=== PATIENT | female | born 1965 | race Caucasian/White ===

== ENCOUNTER 2023-09-09 15:04 | Outpatient (CLI) | payer BC | END 2023-09-09 15:05 | disposition home or self-care (01) | LOC: BICMAMMO 15:04 | PROVIDERS: ATTEND Nurse Practitioner Family | DX: N63.25 Unspecified lump in the left breast, overlapping quadrants (principal); N63.21 Unspecified lump in the left breast, upper outer quadrant | CPT/HCPCS: 77066; G0279 ==

== ENCOUNTER 2024-11-20 13:30 | Emergency (ER) | payer OTHER ==
[~2024-11-20 13:30] MED LIST: Iopamidol 370 76% 100 ML VIAL ONE
[2024-11-20 15:26] LABS: #Basophils 0.07 10x3/uL (0.0-0.2); #Eosinophils Less than 0.03 10x3/uL (0.0-0.7); #Monocytes 0.74 10x3/uL (0.11-0.59); #Neutrophils 2.16 10x3/uL (1.40-6.50); %Basophils 1.5 % (0.0-1.0); %Eosinophils 0.0 % (0.0-10.0); %Lymphocytes 34.2 % (21.0-51.0); %Monocytes 16.2 % (0.0-10.0); %Neutrophils 47.4 % (42.0-75.0); Hematocrit 37.1 % (36.0-47.0); Hemoglobin 12.0 g/dL (12.0-16.0); Mean Corpuscular Hemoglobin 30.6 pg (27.0-31.0); Mean Corpuscular Volume 94.6 fL (78.0-98.0); Platelet Count 252 10x3/uL (130-400); Red Blood Cell (RBC) Count 3.92 mill/uL (4.20-5.40); White Blood Cell (WBC) Count 4.56 10x3/uL (4.8-10.8)
[2024-11-20 15:37] LABS: ALT (SGPT) 43 U/L (Less than 34); AST (SGOT) 43 U/L (11-34); Albumin 4.4 g/dL (3.1-4.5); Alkaline Phosphatase 127 U/L (40-110); Anion Gap 23 mmol/L (10-20); BUN (Urea Nitrogen) 12 mg/dL (9.8-20.1); Bilirubin, Total 0.4 mg/dL (0.3-1.2); Calc. Creatinine Clearance 0 mL/min (70-130); Calcium 9.9 mg/dL (7.8-10.44); Carbon Dioxide 21 mmol/L (22-29); Chloride 103 mmol/L (98-107); Globulin 3.6 g/dL (2.4-3.5); Glucose 132 mg/dL (70-105); Magnesium 2.0 mg/dL (1.6-2.6); Potassium 3.7 mmol/L (3.5-5.1); Sodium 143 mmol/L (136-145)
[2024-11-20 15:40] LABS: INR-International Normal Ratio 1.0; PTT 27.2 sec (22.9-36.1); Prothrombin Time 12.8 sec (12.0-14.7)
== END 2024-11-20 17:02 | disposition home or self-care (01) ==
LOC: ERS 13:30
DX: R42 Dizziness and giddiness (principal); I10 Essential (primary) hypertension; E11.9 Type 2 diabetes mellitus without complications; F17.290 Nicotine dependence, other tobacco product, uncomplicated; Z55.6 Problems related to health literacy; Z85.3 Personal history of malignant neoplasm of breast
CPT/HCPCS: 36416; 70496; 70498; 80053; 83735; 85025; 85610; 85730; 93005; Q9967